=== PATIENT | female | born 1965 | race Caucasian/White ===

== ENCOUNTER 2016-08-05 11:05 | Emergency (ER) | payer OTHER ==
[~2016-08-05] VITALS: Wt 71.8 kg
--- NOTE | 2016-08-05 11:47 | EN ---
Date/Time of Note Date/Time of Note DATE: 08/05/16 TIME: 11:43 ER Progress Note I was called to the fast track to assist on a laceration repair on this patient and she had an apparent arterial bleed that was shooting blood out of her left middle finger from a laceration she obtained from a knife when she was cutting cheese. At staff apply better turning head is that only had a plastic once on her and we placed a manual blood pressure cuff tourniquet his arm. Performed a digital block on the middle finger and the placed a single suture in the midpoint of the laceration. The tourniquet was then released and hemostasis was achieved. I left the physician's press assistant to finish for repair of the laceration. Digital nerve block no, left middle finger: Haldol wipe was used to clean dorsum of hand. Dorsal base of hand was injected with 2 mL of lidocaine without epinephrine on each side. Patient told procedure well no complications. She had good anesthesia was unable to feel pinprick sensation to the distal finger. Laceration repair note, control of arterial bleeding.: 1 cm laceration to PIP a ventral side of left middle finger. Laceration repairs, located by active arterial bleeding. 5-0 silk suture was used to place a single simple interrupted suture at the center of the laceration. Bleeding completely stopped after placement of suture. Tourniquet was released and was no further bleeding. Patient tolerated procedure well or no complications NOLVIA ARENAS DO Aug 05, 2016 11:46
[2016-08-05] MEDS ORDERED: DIPHTH/TET/ACEL PERTUSS (ADULT) 0.5 ML VIAL IM* ONE (12:00)
[2016-08-05] MEDS ORDERED: CEPH-443 PO (12:40)
[2016-08-05] MEDS ORDERED: HYDR-906 PO (12:41)
--- NOTE | 2016-08-05 12:55 | ERD ---
ER Documentation Chief Complaint Date/Time DATE: 08/05/16 TIME: 12:44 Chief Complaint r. middle finger lac sent by clinic. arm raised during vs HPI Patient is a 50-year-old female with a past medical history of hypertension, diabetes, hyperlipidemia who presents to the emergency department with a laceration to her right middle finger. Patient states that she was cutting cheese earlier this morning when she sustained a laceration with a kitchen knife. Patient reports immediate bleeding. Patient went to the urgent care earlier today but was referred to the ER due to persistent bleeding. Patient does not recall her last tetanus vaccination was. Patient denies any fever, chills, nausea, vomiting, dizziness or LOC. ROS All systems reviewed and are negative except as per history of present illness. Medications Home Meds Active Scripts Hydrocodone/Acetaminophen ([place] 5-325 Tablet) 1 Each Tablet, 1 EACH PO BID, #7 TAB Prov:ALONSO PATTON PA-C 08/05/16 Cephalexin* (Keflex*) 500 Mg Capsule, 500 MG PO QID for 7 Days, CAP Prov:ALONSO PATTON PA-C 08/05/16 PMhx/Soc History of Surgery: Yes (Hysterectomy) Hx Neurological Disorder: No Hx Respiratory Disorders: No Hx Cardiac Disorders: No Hx Miscellaneous Medical Probl: Yes (HTN, Cholesterol) Hx Alcohol Use: Yes (socially) Hx Substance Use: No Hx Tobacco Use: No Smoking Status: Never smoker Physical Exam Vitals Vital Signs Date Time Temp Pulse Resp B/P Pulse Ox O2 Delivery O2 Flow Rate FiO2 08/05/16 11:09 98.0 88 20 216/95 100 Physical Exam GENERAL: Well-developed, well-nourished female. Appears in no acute distress. HEAD: Normocephalic, atraumatic. EYES: Pupils are equally reactive bilaterally. EOMs grossly intact. No conjunctival erythema. ENT: Moist mucous membranes. No uvula deviation. No kissing tonsils. NECK: Supple. No lymphadenopathy or thyromegaly. No meningismus. LUNG: Clear to auscultation bilaterally. No rhonchi, wheezing, rales or coarse breath sounds. HEART: Regular rate and rhythm. No murmurs, rubs or gallops. ABDOMEN: No scars, ecchymosis or rashes noted. Soft, nontender, and nondistended. Positive bowel sounds in all four quadrants. No rebound tenderness , no guarding. (-) McBurneys point tenderness. No CVA tenderness. BACK: No midline tenderness. EXTREMITIES: Equal pulses bilaterally. No peripheral clubbing, cyanosis or edema. No unilateral leg swelling. NEUROLOGIC: Alert and oriented. Moving all four extremities without any difficulty. Normal speech. Steady gait. SKIN: Normal color. Warm and dry. 1cm laceration of PIPJ joint, medial aspect. Persistent bleeding despite pressure dressing. LEFT HAND: Laceration as noted above. Full range of motion of all fingers. Sensation intact to light touch. Patient is neurovascularly intact. Normal pulses. Results 24 hrs Current Medications Medications (Trade) Dose Ordered Sig/Francoise Route PRN Reason Start Time Stop Time Status Last Admin Dose Admin Diphtheria/ Tetanus/Acell Pertussis (Adacel) 0.5 ml ONCE ONCE IM* 08/05/16 12:00 08/05/16 12:01 DC 08/05/16 11:57 Procedures/MDM ED COURSE: The patient was stable throughout ED course. I kept the patient and/or family informed of laboratory and diagnostic imaging results throughout the ED course. PROCEDURES: Laceration Repair: The patient was verbally consented prior to procedure. Patient was explained the risks, benefits and alternatives to this procedure. Length: 1 cm Irrigation: Thorough irrigation was performed with normal saline and adequate pressure. Inspection: The wound was thoroughly explored and no foreign bodies, deep tissue , tendon or structural injuries were noted. Anesthesia: 2mL lidocaine, injected by Dr. Zapata, supervising physician Repair: The area was prepared and draped in the usual sterile manner with the wound exposed. Given that patient had signs of an arterial bleed, Dr. Zapata, supervising physician was consulted to help in suturing. A manual blood pressure tourniquet was placed on the patient's left arm to help control ongoing bleeding. Dr. Zapata placed a single suture into the midpoint of the suture using 5-0 silk suture. Bleeding significantly decreased immediately. I continue to place simple interrupted sutures using 5-0 silk suture. Total sutures placed were 4, with good wound closure and wound approximation. Bleeding stopped. Patient tolerated the procedure well without any complications. The wound was dressed with bacitracin and sterile gauze. The patient was neurovascularly intact post-procedure. Post-procedural wound care was discussed with the patient. MEDICATIONS GIVEN: Tdap vaccine Patient tolerated medication well with no adverse reactions. MEDICAL DECISION MAKING: Patient is a 50-year-old female who presented with a laceration to her right middle finger which occurred earlier today. Patient's injury is most likely an arterial bleed. A manual blood pressure tourniquet was used to assist in laceration repair. Dr. Zapata, my supervising physician, assisted in suture repair. Vital signs were reviewed. Patient was afebrile. The wound was cleansed thoroughly and closed using sutures. The patient had good wound closure and wound approximation. Bleeding was noted to have stopped at time of discharge. Patient tolerated wound closure without any complications. Tetanus is up-to- date. Patient's blood pressure is likely elevated secondary to pain. Low suspicion for hypertensive emergency, hypertensive urgency or end-organ failure. Patient was advised to follow with her primary care physician for further management of her blood pressure. PRESCRIPTIONS: [place], Keflex She was advised to complete full course of antibiotics. DISCHARGE: At this time, the patient is stable for discharge and outpatient management. Post-procedural wound care was discussed with the patient. The patient has been advised to return to the ER in 2 days for a wound check. I have instructed the patient to promptly return to the ER for any new or worsening symptoms including increasing pain, fever, warmth, redness or swelling. The patient and/ or family expressed understanding of and agreement with this plan. All questions were answered. Home care instructions were provided. Patients blood pressure was elevated (>120/80) but appears stable without evidence of hypertensive emergency, hypertensive urgency or end-organ failure. I had discussion with the patient about the risks of hypertension. I have advised the patient to follow up with his/her primary care physician for outpatient monitoring and treatment for hypertension in 2-3 days. I have instructed the patient to return to the ER for any new or worsening symptoms including chest pain, shortness of breath, headache, blurred vision, confusion, nausea, vomiting or LOC. Departure Diagnosis: Primary Impression: Laceration Condition: Stable Patient Instructions: Laceration, Hand Referrals: COMMUNITY CLINICS YOU HAVE RECEIVED A MEDICAL SCREENING EXAM AND THE RESULTS INDICATE THAT YOU DO NOT HAVE A CONDITION THAT REQUIRES URGENT TREATMENT IN THE EMERGENCY DEPARTMENT. FURTHER EVALUATION AND TREATMENT OF YOUR CONDITION CAN WAIT UNTIL YOU ARE SEEN IN YOUR DOCTORS OFFICE WITHIN THE NEXT 1-2 DAYS. IT IS YOUR RESPONSIBILITY TO MAKE AN APPOINTMENT FOR FOLOW-UP CARE. IF YOU HAVE A PRIMARY DOCTOR --you should call your primary doctor and schedule an appointment IF YOU DO NOT HAVE A PRIMARY DOCTOR YOU CAN CALL OUR PHYSICIAN REFERRAL HOTLINE AT IF YOU CAN NOT AFFORD TO SEE A PHYSICIAN YOU CAN CHOSE FROM THE FOLLOWING [facility] [address] [facility] [address] [facility] [address] [facility] [address] [facility] [address] [facility]. [facility] [address] [facility]. [facility] YOU HAVE RECEIVED A MEDICAL SCREENING EXAM AND THE RESULTS INDICATE THAT YOU DO NOT HAVE A CONDITION THAT REQUIRES URGENT TREATMENT IN THE EMERGENCY DEPARTMENT. FURTHER EVALUATION AND TREATMENT OF YOUR CONDITION CAN WAIT UNTIL YOU ARE SEEN IN YOUR DOCTORS OFFICE WITHIN THE NEXT 1-2 DAYS. IT IS YOUR RESPONSIBILITY TO MAKE AN APPOINTMENT FOR FOLOW-UP CARE. IF YOU HAVE A PRIMARY DOCTOR --you should call your primary doctor and schedule and appointment IF YOU DO NOT HAVE A PRIMARY DOCTOR YOU CAN CALL OUR PHYSICIAN REFERRAL HOTLINE AT . IF YOU CAN NOT AFFORD TO SEE A PHYSICIAN YOU CAN CHOSE FROM THE FOLLOWING [facility]: [facility] [address] [place] [address] [facility] [address] [place] [address] [facility] + [facility] [address] [place] [address] Additional Instructions: Follow up in 2 days for wound check. Return sooner to the emergency department for any new or worsening symptoms including bleeding, pain, swelling, redness, warmth, fever, chills. Keep dressing clean and dry. ALONSO PATTON PA-C Aug 05, 2016 12:54
== END 2016-08-05 13:02 | disposition home or self-care (01) ==
LOC: FTE 11:05
DX: S61.212A Laceration without foreign body of right middle finger without damage to nail, initial encounter (principal); I10 Essential (primary) hypertension; W26.0XXA Contact with knife, initial encounter; Y92.000 Kitchen of unspecified non-institutional (private) residence as the place of occurrence of the external cause; Z23 Encounter for immunization
CPT/HCPCS: 12001; 90471; 90715; Z7502

== ENCOUNTER 2016-08-07 09:48 | Emergency (ER) | payer OTHER ==
[~2016-08-07] VITALS: Ht 165.1 cm; Wt 72.0 kg
[~2016-08-07 09:48] MED LIST: CEPH-443 PO; HYDR-906 PO
[2016-08-07 09:51] VITALS: Ht 165.1 cm; Wt 72.0 kg
--- NOTE | 2016-08-07 11:36 | ERD ---
ER Documentation Chief Complaint Date/Time DATE: 08/07/16 TIME: 11:31 Chief Complaint RECEHECK ON LT MIDDLE FINGER INJURY HPI This is a 50-year-old female who presents to emergency department today for a recheck of a laceration that she sustained on her left hand middle finger 2 days ago. Patient states she has pain. States she has been taking Motrin. Denies any fevers or chills. States she is taking her antibiotics. ROS All systems reviewed and are negative except as per history of present illness. Medications Home Meds Active Scripts Hydrocodone/Acetaminophen (Alliance 5-325 Tablet) 1 Each Tablet, 1 EACH PO BID, #7 TAB Prov:ALONSO PATTON PA-C 08/05/16 Cephalexin* (Keflex*) 500 Mg Capsule, 500 MG PO QID for 7 Days, CAP Prov:ALONSO PATTON PA-C 08/05/16 PMhx/Soc History of Surgery: Yes (Hysterectomy) Hx Neurological Disorder: No Hx Respiratory Disorders: No Hx Cardiac Disorders: No Hx Miscellaneous Medical Probl: Yes (HTN, Cholesterol) Hx Alcohol Use: Yes (socially) Hx Substance Use: No Hx Tobacco Use: No Physical Exam Vitals Vital Signs Date Time Temp Pulse Resp B/P Pulse Ox O2 Delivery O2 Flow Rate FiO2 08/07/16 09:51 98.1 83 18 148/66 100 Physical Exam Const: No acute distress Head: Atraumatic Eyes: Normal Conjunctiva ENT: Normal External Ears, Nose and Mouth. Neck: Full range of motion..~ No meningismus. Resp: Clear to auscultation bilaterally Cardio: Regular rate and rhythm, no murmurs Abd: Soft, non tender, non distended. Normal bowel sounds Skin: Left hand third middle finger with evidence of laceration. Evidence of mild ecchymosis around area. No erythema or warmth. Back: No midline or flank tenderness MSK: Left hand third middle finger with full extension limited range of motion and flexion secondary to pain. Patient had good sensation but feels some numbness on DIP. Unable to assess cap refill secondary to nail burkinan Neur: Awake and alert Psych: Normal Mood and Affect Procedures/MDM This is a right-handed 50-year-old female who presents to the emergency department today for wound check of a left hand laceration that she sustained 2 days ago. Patient was complaining of pain. Patient was given a perception for Alliance but did not fill her medication prescription. She has just been taking Motrin. Patient was instructed to take the prescription to get filled. On physical examination localized bruising on the patient's third middle finger however there is no erythema or warmth. Patient is able to extend her third finger and she is able to flex her finger however it is limited. At the PIP joint secondary to pain. I have low suspicion for sepsis, deep space infection, cellulitis. Patient is afebrile and otherwise well-appearing. Patient was instructed to continue taking her antibiotics as prescribed. I was unable to assess cap refill of the patient had nail burkinan currently however she does have good sensation in the area where she has a laceration. She was complaining of some decreased sensation at her DIP joint. I do have low suspicion of tendon involvement at this time. I would find to the patient she may have some numbness there for quite some time. 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 Patient was instructed to have suture removal in 5-7 days or return for any worsening of symptoms. At this time the patient is stable for discharge and outpatient management. Patient should follow up with their PCP in the next 1-2 days. They may return to the emergency department sooner for any persistent or worsening of symptoms. Patient understood and agreed with the plan. Departure Diagnosis: Primary Impression: Encounter for wound re-check Condition: Fair Patient Instructions: Wound Check, Lac F/U (No Infection) Referrals: your PCP Additional Instructions: Call your primary care doctor TOMORROW for an appointment during the next 1-2 days.See the doctor sooner or return here if your condition worsens before your appointment time. Fill your prescription for Alliance. Take for severe pain otherwise take Motrin or Naprosyn or Tylenol Continue taking her antibiotics Suture removal in 5-7 days Keep wound clean and dry NIMO GONSALES PA-C Aug 07, 2016 11:36
== END 2016-08-07 12:11 | disposition home or self-care (01) ==
LOC: FTE 09:48
DX: Z48.01 Encounter for change or removal of surgical wound dressing (principal); I10 Essential (primary) hypertension
CPT/HCPCS: 99281